=== PATIENT | female | born 1985 | race Caucasian/White ===

== ENCOUNTER 2021-10-08 11:51 | Emergency (ER) | payer OTHER, MEDICAID ==
[~2021-10-08] VITALS: Ht 149.9 cm; Wt 44.5 kg
[2021-10-08] MEDS ORDERED: PROAIR HFA8.5 GM INH (11:59)
[2021-10-08] MEDS ORDERED: ATIVAN1 M1 PO (13:10)
[2021-10-08 13:30] VITALS: BP 112/56
== END 2021-10-08 13:30 | disposition home or self-care (01) ==
LOC: M.ERS 11:51
DX: F41.0 Panic disorder [episodic paroxysmal anxiety] (principal); L30.9 Dermatitis, unspecified; Z79.899 Other long term (current) drug therapy